=== PATIENT | female | born 1985 | race Caucasian/White ===

== ENCOUNTER 2023-02-13 09:01 | Emergency (ER) | payer BC ==
[~2023-02-13] VITALS: Ht 167.6 cm; Wt 95.7 kg
[~2023-02-13 09:01] MED LIST: LABETALOL HCL300 MG PO
[2023-02-13] MEDS ORDERED: HYDROCODON-ACE1 EA10 PO (10:12)
[2023-02-13] MEDS ORDERED: ONDANSETRON ODT4 MG PO (10:12)
[2023-02-13 11:41] VITALS: BP 149/89
== END 2023-02-13 11:41 | disposition home or self-care (01) ==
LOC: ED 09:01
DX: N13.2 Hydronephrosis with renal and ureteral calculous obstruction (principal); N23 Unspecified renal colic; Z88.5 Allergy status to narcotic agent
CPT/HCPCS: 36415; 74176; 80053; 81001; 83690; 84703; 85025; 96374; 96375; 99284 25; J1885; J2405; J7030